=== PATIENT | female | born 1995 | race Caucasian/White ===

== ENCOUNTER 2018-03-20 23:17 | Emergency (ER) | payer SELFPAY ==
[2018-03-20 23:17] VITALS: BMI 26.9
[2018-03-20 23:22] VITALS: RESP 16
[2018-03-20 23:38] LABS: HCG,QUALITATIVE URINE POSITIVE (NEGATIVE)
[2018-03-20 23:41] LABS: SQUAMOUS EPITHIAL 8 /hpf (0-5); URINE BACTERIA RARE (<OCC); URINE BILIRUBIN NEGATIVE (NEGATIVE); URINE BLOOD NEGATIVE (NEGATIVE); URINE CLARITY Hazy (Clear); URINE COLOR Yellow (YELLOW); URINE GLUCOSE (UA) NORMAL (Normal); URINE LEUKOCYTE ESTERASE 2+ Leu/uL (Negative); URINE PROTEIN NEGATIVE (NEGATIVE); URINE UROBILINOGEN NORMAL mg/dL (0.2-1.0)
[2018-03-20] MEDS ORDERED: Sodium Chloride 0.9% 1,000 ML IV ONE (23:49)
[2018-03-20] MEDS ORDERED: Lidocaine 5% Patch TD STA (23:53)
[2018-03-21] MEDS ORDERED: Lidocaine 5% Patch TD ONE (00:16)
[2018-03-21 00:19] LABS: BASO % 0.3 % (0.0-2.0); EOS # 0.1 K/uL (0.0-0.7); EOS % 0.9 % (0.0-4.0); HEMOGLOBIN 11.2 g/dL (11.0-16.0); LYMPH # 2.4 K/uL (1.0-4.3); LYMPH % 25.7 % (20.0-40.0); MEAN CELL VOLUME 87.4 fL (81.0-99.0); MEAN CORPUSCULAR HEMOGLOBIN 28.8 pg (27.0-31.0); MEAN PLATELET VOLUME 8.2 fL (7.2-11.7); MONO # 0.9 K/uL (0.0-0.8); MONO % 9.6 % (0.0-10.0); NEUT # 5.9 K/uL (1.8-7.0); NEUT % 63.5 % (50.0-75.0); RBC 3.9 Mil/uL (3.80-5.20); RED CELL DISTRIBUTION WIDTH 15.3 % (11.5-14.5); WHITE BLOOD COUNT 9.3 K/uL (4.8-10.8)
--- NOTE | 2018-03-21 00:44 | C.PDOC ---
History Of Present Illness 22 year old female with no PMHx , 10 weeks presents to the ER with pelvic pain and back pain since 8:30am this morning. Patient had accidentally fallen while in the bathroom today and hit her left back on the toilet. She has tried to rest and has not taken anything for the pain, presents tonight because pain has been worsening. Patient has been getting [facility] but has not had US yet for this . Denies vaginal discharge, vaginal bleeding, urinary symptoms. No surgeries, nonsmoker. <Sultana Mena - Last Filed: 03/22/18 15:14> <Ashely Frederick - Last Filed: 03/21/18 02:59> History Per: Patient History/Exam Limitations: no limitations Onset/Duration Of Symptoms: Hrs Current Symptoms Are (Timing): Still Present Quality Of Discomfort: Unable To Describe Previous Symptoms: Prior Injury Associated Symptoms: None Recent travel outside of the [place]: No <Sultana Mena - Last Filed: 03/22/18 15:14> Time Seen by Provider: 03/20/18 23:42 Chief Complaint (Nursing): Back Pain Past Medical History Vital Signs: Last Vital Signs Temp 97.7 F 03/20/18 23:20 Pulse 72 03/20/18 23:20 Resp 16 03/20/18 23:20 BP 93/58 L 03/20/18 23:20 Pulse Ox 98 03/21/18 00:52 - [facility] Procedures DELIVERY OF PRODUCTS OF CONCEPTION, EXTERNAL APPROACH (12/21/15) FAMILY THERAPY (08/27/14) INDIVID PSYCHOTHERAP NEC (08/27/14) MONITORING OF POC, CARDIAC RATE, SHELLFISH DREDGE OPERATOR APPROACH (12/21/15) OTHER GROUP THERAPY (08/27/14) REPAIR PERINEUM MUSCLE, OPEN APPROACH (12/21/15) <Ashely Frederick - Last Filed: 03/21/18 02:59> Reviewed: Historical Data, Nursing Documentation, Vital Signs Vital Signs: Last Vital Signs Temp 97.7 F 03/20/18 23:20 Pulse 72 03/20/18 23:20 Resp 16 03/20/18 23:20 BP 93/58 L 03/20/18 23:20 Pulse Ox 98 03/20/18 23:20 - Medical History PMH: Denies: Chronic Kidney Disease - [facility] Procedures DELIVERY OF PRODUCTS OF CONCEPTION, EXTERNAL APPROACH (12/21/15) FAMILY THERAPY (08/27/14) INDIVID PSYCHOTHERAP NEC (08/27/14) MONITORING OF POC, CARDIAC RATE, SHELLFISH DREDGE OPERATOR APPROACH (12/21/15) OTHER GROUP THERAPY (08/27/14) REPAIR PERINEUM MUSCLE, OPEN APPROACH (12/21/15) Family History: States: No Known Family Hx - Social History Hx Alcohol Use: No Hx Substance Use: No <Sultana Mena - Last Filed: 03/22/18 15:14> Review Of Systems Constitutional: Negative for: Fever, Chills Cardiovascular: Negative for: Chest Pain, Palpitations Respiratory: Negative for: Cough, Shortness of Breath Gastrointestinal: Negative for: Nausea, Vomiting Genitourinary: Positive for: Pelvic Pain. Negative for: Dysuria, Hematuria Musculoskeletal: Positive for: Back Pain Neurological: Negative for: Weakness, Numbness <Sultana Mena - Last Filed: 03/22/18 15:14> Physical Exam - Physical Exam Appears: Non-toxic, Other (Mild painful distress) Head: Atraumatic, Normacephalic Eye(s): bilateral: PERRL, EOMI Oral Mucosa: Moist Lips: Normal Appearing Neck: Normal ROM, Trachea Midline Lymphatic: No Adenopathy Chest: Symmetrical, No Tenderness Cardiovascular: Rhythm Regular, No Murmur Respiratory: Normal Breath Sounds, No Wheezing Gastrointestinal/Abdominal: Tenderness (Suprapubic), No Mass, No Guarding, No Rebound Back: No Vertebral Tenderness, Paraspinal Tenderness (Left lumbar) Extremity: Normal ROM, No Deformity Neurological/Psych: Oriented x3, No Normal Motor, No Normal Sensation <Sultana Mena - Last Filed: 03/22/18 15:14> ED Course And Treatment - Laboratory Results Result Diagrams: 03/21/18 00:14 Lab Results: Urine Color Yellow (YELLOW) 03/20/18 23:35 Urine Clarity Hazy (Clear) 03/20/18 23:35 Urine pH 5.0 (5.0-8.0) 03/20/18 23:35 Ur Specific Huntley 1.024 (1.003-1.030) 03/20/18 23:35 Urine Protein Negative mg/dL (NEGATIVE) 03/20/18 23:35 Urine Glucose (UA) Normal mg/dL (Normal) 03/20/18 23:35 Urine Ketones Negative mg/dL (NEGATIVE) 03/20/18 23:35 Urine Blood Negative (NEGATIVE) 03/20/18 23:35 Urine Nitrate Negative (NEGATIVE) 03/20/18 23:35 Urine Bilirubin Negative (NEGATIVE) 03/20/18 23:35 Urine Urobilinogen Normal mg/dL (0.2-1.0) 03/20/18 23:35 Ur Leukocyte Esterase 2+ Sonia/uL (Negative) H 03/20/18 23:35 Urine WBC (Auto) 1 /hpf (0-5) 03/20/18 23:35 Urine RBC (Auto) 2 /hpf (0-3) 03/20/18 23:35 Ur Squamous Epith Cells 8 /hpf (0-5) H 03/20/18 23:35 Urine Bacteria Rare (<OCC) 03/20/18 23:35 Urine HCG, Qual Positive (NEGATIVE) 03/20/18 23:35 Beta HCG, Quant 18198.00 mIU/ML 03/21/18 00:14 Urine HCG, Qual Positive (NEGATIVE) 03/20/18 23:35 Pulse Ox Interpretation: Normal Reevaluation Time: 02:59 Reassessment Condition: Improved <Ashely Frederick - Last Filed: 03/21/18 02:59> - Laboratory Results Result Diagrams: 03/21/18 00:14 Lab Results: Urine Color Yellow (YELLOW) 03/20/18 23:35 Urine Clarity Hazy (Clear) 03/20/18 23:35 Urine pH 5.0 (5.0-8.0) 03/20/18 23:35 Ur Specific Huntley 1.024 (1.003-1.030) 03/20/18 23:35 Urine Protein Negative mg/dL (NEGATIVE) 03/20/18 23:35 Urine Glucose (UA) Normal mg/dL (Normal) 03/20/18 23:35 Urine Ketones Negative mg/dL (NEGATIVE) 03/20/18 23:35 Urine Blood Negative (NEGATIVE) 03/20/18 23:35 Urine Nitrate Negative (NEGATIVE) 03/20/18 23:35 Urine Bilirubin Negative (NEGATIVE) 03/20/18 23:35 Urine Urobilinogen Normal mg/dL (0.2-1.0) 03/20/18 23:35 Ur Leukocyte Esterase 2+ Sonia/uL (Negative) H 03/20/18 23:35 Urine WBC (Auto) 1 /hpf (0-5) 03/20/18 23:35 Urine RBC (Auto) 2 /hpf (0-3) 03/20/18 23:35 Ur Squamous Epith Cells 8 /hpf (0-5) H 03/20/18 23:35 Urine Bacteria Rare (<OCC) 03/20/18 23:35 Urine HCG, Qual Positive (NEGATIVE) 03/20/18 23:35 Urine HCG, Qual Positive (NEGATIVE) 03/20/18 23:35 O2 Sat by Pulse Oximetry: 98 (room air) Pulse Ox Interpretation: Normal <Sultana Mena - Last Filed: 03/22/18 15:14> Medical Decision Making Medical Decision Making: Upon provider reevaluation patient is feeling better, is medically stable, and requires no further treatment in the ED at this time. Patient will be discharged home . Counseling was provided and all questions were answered regarding diagnosis and need for follow up with the referred clinic. There is agreement to discharge plan. Return if symptoms persist or worsen. <Ashely Frederick - Last Filed: 03/21/18 02:59> Medical Decision Making: Impression: Pelvic pain in early , back contusion Differential includes but not limited to: UTI, ectopic , round ligament pain 1am Endorsed to Dr Frederick pending US, reassessement and final ER disposition <Sultana Mena - Last Filed: 03/22/18 15:14> Disposition Counseled Patient/Family Regarding: Studies Performed, Diagnosis, Need For Fo llowup - Disposition Disposition Time: 01:00 <Ashely Frederick - Last Filed: 03/21/18 02:59> <Sultana Mena - Last Filed: 03/22/18 15:14> - Disposition Referrals: at [facility] [Outside] [facility] [Outside] Disposition: HOME/ ROUTINE Condition: FAIR Additional Instructions: Please return if symptoms recur Instructions: Stomach Pain in Early Forms: [facility] (Romanian) - Clinical Impression Clinical Impression: Abdominal pain during - Scribe Statement The provider has reviewed the documentation as recorded by the Scribe Jeff Ferraro All medical record entries made by the Scribe were at my direction and personally dictated by me. I have reviewed the chart and agree that the record accurately reflects my personal performance of the history, physical exam, medical decision making, and the department course for this patient. I have also personally directed, reviewed, and agree with the discharge instructions and disposition. <Sultana Mena - Last Filed: 03/22/18 15:14>
[2018-03-21 03:15] VITALS: BP 91/53; PULSE 68; TEMP 98.5
--- NOTE | 2018-03-21 09:03 | US ---
Date of service: 03/21/2018 PROCEDURE: OB Pelvic Ultrasound HISTORY: pelvic pain r/o ectopic LMP: 01/09/2018 COMPARISON: None available. FINDINGS: UTERUS: Gestational sac: Single intrauterine gestation. Heart rate: 146 bpm. age (Ultrasound estimated): 7 weeks 5 days +/-0 weeks 4 days Caitlyn-gestational hemorrhage: suspicious for subchorionic hemorrhage measures 0.7 x 0.6 x 0.5 centimeter.. Date of delivery (Ultrasound estimated) : 11/02/2018 Uterus measures 10 x 6.2 x 7.5 cm. Normal in size and appearance. CERVIX: Measures 5.4 cm. Long and closed. No cervical abnormality seen. RIGHT OVARY: Measures 3.7 x 2.3 x 3.3 cm. No mass lesion. Normal flow. There is a cyst in the right ovary measures 2.1 x 1.5 x 2.1 centimeter likely represent corpus luteum cyst LEFT OVARY: Measures 2.1 x 1.4 x 2.3 cm. No solid mass. Normal flow. FREE FLUID: None. OTHER FINDINGS: None. IMPRESSION: Single intrauterine live with ultrasound estimated gestational age of 7 weeks 5 days +/-0 weeks 4 days. Estimated date of delivery by ultrasound is 11/02/2018. Suspicious for subchorionic hemorrhage measures 0.7 x 0.6 x 0.5 centimeter. Close follow-up reassessment is recommended. Preliminary report was submitted by [facility] Radiology contains concordant findings.
[2018-03-22 15:14] VITALS: O2SAT 98
== END 2018-03-21 03:15 | disposition home or self-care (01) ==
LOC: C.ER 23:17
DX: O26.891 Other specified pregnancy related conditions, first trimester (principal); R10.2 Pelvic and perineal pain; Z3A.01 Less than 8 weeks gestation of pregnancy
CPT/HCPCS: 76805; 76817; 81001; 84702; 84703; 85025; 96360; 99284; J7030

== ENCOUNTER 2018-03-28 13:30 | Outpatient (CLI) | payer OTHER | END 2018-03-28 13:31 | disposition home or self-care (01) | LOC: C.LAB 13:30 | DX: Z11.3 Encounter for screening for infections with a predominantly sexual mode of transmission (principal); Z11.8 Encounter for screening for other infectious and parasitic diseases; Z3A.00 Weeks of gestation of pregnancy not specified ==

== ENCOUNTER 2018-04-27 14:19 | Outpatient (CLI) | payer SELFPAY | END 2018-04-27 14:20 | disposition home or self-care (01) | LOC: C.LAB 14:19 | DX: Z34.80 Encounter for supervision of other normal pregnancy, unspecified trimester (principal) ==

== ENCOUNTER 2018-04-27 15:02 | Emergency (ER) | payer OTHER ==
[2018-04-27 15:24] VITALS: BMI 24.0
[2018-04-27] MEDS ORDERED: Sodium Chloride 0.9% 1,000 ML IV ONE (15:54)
--- NOTE | 2018-04-27 16:05 | C.PDOC ---
History Of Present Illness 22 y/o female presents to the ED with complaints of a subjective fever for the last 3 days. Associated with nasal congestion, dry non-productive cough, and loss of appetite. Patient also reports occasional vomiting, but is still eating well throughout the day. States she ran out of PO [employer] at home. There is a +sick contact in daughter with viral syndrome. Patient has no documented temp at home. Of note patient is currently and was seen here on 04/16, with initial pelvic US showing EGA 11 weeks 5 days, with O+ blood type. Patient has taken nothing for symptoms today. Time Seen by Provider: 04/27/18 15:41 Chief Complaint (Nursing): Abdominal Pain History Per: Patient History/Exam Limitations: no limitations Onset/Duration Of Symptoms: Days (x 3) Current Symptoms Are (Timing): Still Present Associated Symptoms: Fever, Vomiting, Loss Of Appetite Past Medical History Reviewed: Historical Data, Nursing Documentation, Vital Signs Vital Signs: Last Vital Signs Temp 100.0 F H 04/27/18 15:24 Pulse 99 H 04/27/18 15:24 Resp 18 04/27/18 15:24 BP 96/58 L 04/27/18 15:24 Pulse Ox 97 04/27/18 15:24 - Medical History PMH: Denies: Chronic Kidney Disease Surgical History: No Surg Hx - [facility] Procedures DELIVERY OF PRODUCTS OF CONCEPTION, EXTERNAL APPROACH (12/21/15) FAMILY THERAPY (08/27/14) INDIVID PSYCHOTHERAP NEC (08/27/14) MONITORING OF POC, CARDIAC RATE, SALES ENGINEERING MANAGER APPROACH (12/21/15) OTHER GROUP THERAPY (08/27/14) REPAIR PERINEUM MUSCLE, OPEN APPROACH (12/21/15) Family History: States: Unknown Family Hx - Social History Hx Alcohol Use: No Hx Substance Use: No - Immunization History Hx Tetanus Toxoid Vaccination: No Hx Influenza Vaccination: No Hx Pneumococcal Vaccination: No Review Of Systems Except As Marked, All Systems Reviewed And Found Negative. Constitutional: Positive for: Fever ENT: Positive for: Nose Congestion. Negative for: Ear Pain, Ear Discharge Cardiovascular: Negative for: Chest Pain Respiratory: Positive for: Cough. Negative for: Sputum, Wheezing Gastrointestinal: Positive for: Nausea, Vomiting, Other (Loss of appetite). Negative for: Abdominal Pain, Diarrhea Genitourinary: Negative for: Dysuria Musculoskeletal: Negative for: Back Pain Skin: Negative for: Rash Neurological: Negative for: Weakness, Dizziness Physical Exam - Physical Exam Appears: Non-toxic, No Acute Distress Skin: Warm, Dry, No Rash Head: Atraumatic, Normacephalic Eye(s): bilateral: Normal Inspection, PERRL, EOMI Ear(s): Bilateral: Normal Nose: Other (Moderate to severe nasal erythema) Oral Mucosa: Moist Throat: Normal (no swelling, uvula midline), No Erythema, No Exudate Neck: Normal ROM, Supple Chest: Symmetrical Cardiovascular: Rhythm Regular, No Murmur Respiratory: Normal Breath Sounds, No Accessory Muscle Use Gastrointestinal/Abdominal: Soft, No Tenderness, No Distention, No Guarding Back: No CVA Tenderness Extremity: Bilateral: Atraumatic, Normal Color And Temperature, Normal ROM Neurological/Psych: Oriented x3, Normal Speech ED Course And Treatment - Laboratory Results Result Diagrams: 04/27/18 16:03 04/27/18 16:03 Lab Interpretation: Abnormal (flu A+) O2 Sat by Pulse Oximetry: 97 (RA) Pulse Ox Interpretation: Normal Medical Decision Making Medical Decision Making: Initial Plan: - Blood work - UA - Flu swab - IV fluids, 1L - 4 mg PO Zofran - 975 mg PO Tylenol - 20 mg PO Pepcid - Reassess prob FluA, now approx 13 weeks preg refill Zofran ODT Disposition Doctor Will See Patient In The: Office Counseled Patient/Family Regarding: Studies Performed, Diagnosis - Disposition Disposition: HOME/ ROUTINE Disposition Time: 16:29 Condition: GOOD Forms: [employer] [facility] (Polish) - Clinical Impression Clinical Impression: Vomiting , Acute viral syndrome - Scribe Statement The provider has reviewed the documentation as recorded by the Samir Bennett Provider Attestation: All medical record entries made by the Chanoibfrancisco were at my direction and personally dictated by me. I have reviewed the chart and agree that the record accurately reflects my personal performance of the history, physical exam, medical decision making, and the department course for this patient. I have also personally directed, reviewed, and agree with the discharge instructions and disposition.
[2018-04-27] MEDS ORDERED: Sodium Chloride 0.9% 1,000 ML ONE (16:06)
[2018-04-27 16:08] LABS: BASO % 0.4 % (0.0-2.0); EOS # 0.1 K/uL (0.0-0.7); EOS % 1.6 % (0.0-4.0); HEMOGLOBIN 10.9 g/dL (11.0-16.0); LYMPH # 1.5 K/uL (1.0-4.3); LYMPH % 18.1 % (20.0-40.0); MEAN CELL VOLUME 89.5 fL (81.0-99.0); MEAN CORPUSCULAR HEMOGLOBIN 30.6 pg (27.0-31.0); MEAN CORPUSCULAR HGB CONC 34.2 g/dL (33.0-37.0); MEAN PLATELET VOLUME 8.4 fL (7.2-11.7); MONO # 0.9 K/uL (0.0-0.8); MONO % 11.1 % (0.0-10.0); NEUT # 5.6 K/uL (1.8-7.0); NEUT % 68.8 % (50.0-75.0); NRBC % 0.1 % (0.0-2.0); RBC 3.55 Mil/uL (3.80-5.20); RED CELL DISTRIBUTION WIDTH 15.2 % (11.5-14.5); WHITE BLOOD COUNT 8.1 K/uL (4.8-10.8)
[2018-04-27 16:20] LABS: SQUAMOUS EPITHIAL 1 /hpf (0-5); URINE BACTERIA OCC (<OCC); URINE BILIRUBIN NEGATIVE (NEGATIVE); URINE BLOOD NEGATIVE (NEGATIVE); URINE CLARITY Clear (Clear); URINE COLOR Yellow (YELLOW); URINE GLUCOSE (UA) NORMAL (Normal); URINE LEUKOCYTE ESTERASE NEG Leu/uL (Negative); URINE PROTEIN NEGATIVE (NEGATIVE); URINE UROBILINOGEN NORMAL mg/dL (0.2-1.0)
[2018-04-27 16:25] LABS: ALB/GLOB RATIO 1.3 (1.0-2.1); ALBUMIN 4.1 g/dL (3.5-5.0); ALT/SGPT 18 U/L (9-52); AST/SGOT 20 U/L (14-36); BLOOD UREA NITROGEN 6 mg/dL (7-17); CALCIUM 8.9 mg/dl (8.6-10.4); GFR NON-AFRICAN AMERICAN > 60
[2018-04-27 16:40] VITALS: BP 102/51; PULSE 89; RESP 20; TEMP 98.2; O2SAT 98
== END 2018-04-27 17:18 | disposition home or self-care (01) ==
LOC: C.ER 15:02
DX: O21.9 Vomiting of pregnancy, unspecified (principal); O98.511 Other viral diseases complicating pregnancy, first trimester; B34.9 Viral infection, unspecified; Z3A.11 11 weeks gestation of pregnancy
CPT/HCPCS: 80053; 81001; 85025; 87804; 96360; 99284; J7030